=== PATIENT | male | born 1990 | race Two or more races ===

== ENCOUNTER 2017-04-10 14:43 | Emergency (ER) | payer BC ==
[2017-04-10 15:04] VITALS: TEMP 98.6; BMI 33.9
--- NOTE | 2017-04-10 15:17 | PDOC ---
History of Present Illness - General Chief Complaint: Palpitations Stated Complaint: PALPITATIONS Time Seen by Provider: 04/10/17 15:16 History Source: Patient Exam Limitations: No Limitations - History of Present Illness Initial Comments: 04/10/17 16:14 Patient is a 26 year old male with no significant PMH presenting with difficult breathing, heart palpitations and sinus pressure. Patient states his symptoms started about 3 days ago with an increased work of breathing and sinus pressure , no pain. He felt as if he could not catch his breath and was having to take deeper breaths than normal. Symptoms were improved with closing his eyes and laying back. Today he started feeling palpitations in his chest and feeling shaky and sweaty. He also started feeling panicky about not being able to get enough air. Denies fever, chills, chest pain, nausea and vomiting. He endorses similar symptoms 2 years ago for which he was given albuterol and an unknown medicine that he took for about a week. He states he didn't feel the albuterol helped. PCP: Dr. Sean Macias Past History - Past Medical History Allergies/Adverse Reactions: Allergies Allergy/AdvReac Type Severity Reaction Status Date / Time morphine Allergy Verified 04/10/17 15:01 Home Medications: Ambulatory Orders Brimonidine Tartrate/Timolol [Combigan 0.2%-0.5% Eye Drops] 5 ml OP DAILY Other medical history: denies. - Psycho/Social/Smoking Cessation Hx Anxiety: No Suicidal Ideation: No Smoking History: Never smoked Number of Cigarettes Smoked Daily: 0 Hx Alcohol Use: Yes ("occasional") Review of Systems - Review of Systems Able to Perform ROS?: Yes Comments:: Denies fever, chills, recent illness Denies sore throat, changes in vision and hearing Endorses difficulty breathing, sob, denies cough, wheezing Endorses palpitations, diaphoresis; denies chest pain, lightheadedness Denies abdominal pain, nausea, vomiting, diarrehea, constipation Denies dysurea, discharge, increased frequency Denies any bruises or rashes Denies muscle or joint pain Denies any weakness or dizziness Endorses feeling a panic, feeling shaky, feeling anxious All other systems reviewed and negative Is the patient limited Kyr[place]z proficient: No *Physical Exam - Vital Signs Last Vital Signs Temp Pulse Resp BP Pulse Ox 98.6 F 100 H 17 116/78 98 04/10/17 15:01 04/10/17 15:01 04/10/17 15:01 04/10/17 15:01 04/10/17 15:01 - Physical Exam Comments: GENERAL: AAOx3, nourished and generally well appearing, NAD HEAD: NCAT EYES: PERRLA, EOMI, sclera anicteric, conjunctiva clear ENT: hearing grossly normal, nares patent, mild erythema and enema of turbinate b/l, no nasal discharge, no congestion, MMM NECK: supple, normal ROM, no LAD RESP: speaking in full sentences, symmetrical chest expansion, no respiratory distress, lungs CTAB, no wheezing HEART: RRR, normal S1-S2, no MRG ABDOMEN: soft, NTND, no guarding, no rebound. EXTREMITIES: Moving all extremities, normal ROM, normal inspection NEUROLOGICAL: CN II-XII grossly intact, normal speech, normal gait, no focal sensorimotor deficits SKIN: warm, dry, normal turgor, no rashes or lesions noted. ED Treatment Course - LABORATORY CBC & Chemistry Diagram: 04/10/17 15:44 04/10/17 15:44 Medical Decision Making - Medical Decision Making 04/10/17 16:12 26 yo male with feelings of air hunger and palpitations w/o chest pains. Currently feeling much improved. Ddx includes but is not limited to arrhythmia, anxiety, metabolic Plan: EKG CBC, CMP Cardiac enzymes TSH CXR EKG: NSR, no s-t elevation, normal intervals 04/10/17 17:35 CBC WBC 6.5 K/mm3 (4.0-10.0) 04/10/17 15:44 RBC 5.11 M/mm3 (4.00-5.60) 04/10/17 15:44 Hgb 15.5 GM/dL (11.7-16.9) 04/10/17 15:44 Hct 44.5 % (35.4-49) 04/10/17 15:44 MCV 87.1 fl (80-96) 04/10/17 15:44 MCH 30.4 pg (25.7-33.7) 04/10/17 15:44 MCHC 34.9 g/dl (32.0-35.9) 04/10/17 15:44 RDW 13.1 % (11.9-15.9) 04/10/17 15:44 Plt Count 271 K/MM3 (134-434) 04/10/17 15:44 MPV 7.5 fl (7.5-11.1) 04/10/17 15:44 Neutrophils % 53.9 % (42.8-82.8) 04/10/17 15:44 Lymphocytes % 30.5 % (8-40) 04/10/17 15:44 Monocytes % 11.2 % (3.8-10.2) H 04/10/17 15:44 Eosinophils % 3.6 % (0-4.5) 04/10/17 15:44 Basophils % 0.8 % (0-2.0) 04/10/17 15:44 within normal limits CMP Sodium 138 mmol/L (136-145) 04/10/17 15:44 Potassium 3.8 mmol/L (3.5-5.1) 04/10/17 15:44 Chloride 103 mmol/L (98-107) 04/10/17 15:44 Carbon Dioxide 24 mmol/L (21-32) 04/10/17 15:44 Anion Gap 11 (8-16) 04/10/17 15:44 BUN 12 mg/dL (7-18) 04/10/17 15:44 Creatinine 0.8 mg/dL (0.7-1.3) 04/10/17 15:44 Creat Clearance w eGFR > 60 (>60) 04/10/17 15:44 Random Glucose 95 mg/dL (74-106) 04/10/17 15:44 Calcium 8.9 mg/dL (8.5-10.1) 04/10/17 15:44 Total Bilirubin 0.5 mg/dL (0.2-1.0) 04/10/17 15:44 AST 22 U/L (15-37) 04/10/17 15:44 ALT 50 U/L (12-78) 04/10/17 15:44 Alkaline Phosphatase 80 U/L (45-117) 04/10/17 15:44 Creatine Kinase 146 IU/L (39-308) 04/10/17 15:40 Troponin I < 0.02 ng/ml (0.00-0.05) 09/16/17 15:40 Total Protein 7.5 g/dl (6.4-8.2) 04/10/17 15:44 Albumin 4.0 g/dl (3.4-5.0) 04/10/17 15:44 Within normal limits no elevation in troponin 04/10/17 17:48 TSH within normal limits (1.26) Normal CBC, CMP, no elevation in cardiac enzymes, TSH Consulted patient about possible allergies and advised him to discuss with his PSP. Patient agrees to follow up with PCP in the next week *DC/Admit/Observation/Transfer Diagnosis at time of Disposition: Palpitations, Anxiety - Discharge Dispostion Disposition: HOME Condition at time of disposition: Improved Admit: No - Referrals Referrals: Timmy Macias MD [Staff Physician] - - Patient Instructions Printed Discharge Instructions: DI for Anxiety -- Adult Additional Instructions: Please follow up with Dr. Macias next week. If you call his office at the number provided and inform them your were seen in the emergency department they should be able to get you and appointment. We have provided you with a copy of your EKG and lab results from today that you can discuss with your doctor. You should return to the emergency department immediately if your symptoms worsen or you develop any new or concerning symptoms. If you do not feel safe driving yourself, please call 911.
--- NOTE | 2017-04-10 16:02 | PDOC ---
Attending Attestation - Resident Resident Name: Mike Medina - ED Attending Attestation I have performed the following: I have examined & evaluated the patient, The case was reviewed & discussed with the resident, I agree w/resident's findings & plan, Exceptions are as noted - HPI HPI: 04/10/17 15:54 26 M with h/o anxiety presents to ER with 3 days of intermittent palpitations. Pt states that every few hours he will get a sensation that his heart is racing. It is often associated with a feeling of severe anxiety. He reports that he begins to breathe heavily during these episodes, but they always resolve after a few minutes. Pt currently feels well. Denies ever having chest pain. Denies F/C. Denies cough. Denies any palpitations or SOB at this time. Pt states that these symptoms are similar to when he was diagnosed with anxiety several years ago. He was prescribed a medication by his PMD, which he states helped significantly, but he has not taken it in some time. Pt also endorses drinking 2 large cups of iced coffee every day. Denies other substance use. No ETOH, no cocaine/marijuana. - Physicial Exam PE: 04/10/17 15:56 "GENERAL: Awake, alert, and fully oriented, in no acute distress HEAD: No signs of trauma EYES: PERRLA, EOMI, sclera anicteric, conjunctiva clear ENT: Auricles normal inspection, hearing grossly normal, nares patent, oropharynx clear without exudates. Moist mucosa NECK: Nontender, no stepoffs, Normal ROM, supple, no lymphadenopathy, JVD, or masses LUNGS: Breath sounds equal, clear to auscultation bilaterally. No wheezes, and no crackles HEART: Regular rate and rhythm, normal S1 and S2, no murmurs, rubs or gallops ABDOMEN: Soft, nontender, normoactive bowel sounds. No guarding, no rebound. No masses EXTREMITIES: Normal range of motion, no edema. No clubbing or cyanosis. No cords, erythema, or tenderness NEUROLOGICAL: Cranial nerves II through XII intact. 5/5 strength and sensation in all extremities, Normal speech, normal gait SKIN: Warm, Dry, normal turgor, no rashes or lesions noted. " - Medical Decision Making 04/10/17 15:57 26 M with intermittent palpitations and SOB x 3 days. Currently asymptomatic with normal vitals. Possible anxiety. EKG to evaluate for cardiac arrhythmia. Will check TSH as well. - Labs, TSH - EKG - CXR Pt signed out to night team at 5PM. Dispo pending TSH, EKG. Discharge Disposition - Diagnosis Palpitations, Anxiety - Discharge Dispostion Disposition: HOME Condition at time of disposition: Improved - Referrals Referrals: Timmy Macias MD [Staff Physician] - - Patient Instructions Printed Discharge Instructions: DI for Anxiety -- Adult Additional Instructions: Please follow up with Dr. Macias next week. If you call his office at the number provided and inform them your were seen in the emergency department they should be able to get you and appointment. We have provided you with a copy of your EKG and lab results from today that you can discuss with your doctor. You should return to the emergency department immediately if your symptoms worsen or you develop any new or concerning symptoms. If you do not feel safe driving yourself, please call 911.
[2017-04-10 16:07] LABS: BASOPHIL 0.8 % (0-2.0); EOSINOPHIL 3.6 % (0-4.5); MCH 30.4 pg (25.7-33.7); MCHC 34.9 g/dl (32.0-35.9); MEAN CELL VOLUME 87.1 fl (80-96); MEAN PLT VOLUME 7.5 fl (7.5-11.1); NEUTROPHILS 53.9 % (42.8-82.8); PLATELET COUNT 271 K/MM3 (134-434); RDW 13.1 % (11.9-15.9); WHITE BLOOD COUNT 6.5 K/mm3 (4.0-10.0)
[2017-04-10 16:43] LABS: ANION GAP 11 (8-16); CALCIUM 8.9 mg/dL (8.5-10.1); CO2 24 mmol/L (21-32); CREATININE 0.8 mg/dL (0.7-1.3); GLUCOSE,RANDOM 95 mg/dL (74-106); SGOT/AST 22 U/L (15-37); SGPT/ALT 50 U/L (12-78)
[2017-04-10 16:45] LABS: ALK PHOS 80 U/L (45-117); BILIRUBIN,TOTAL 0.5 mg/dL (0.2-1.0); TOT PROT 7.5 g/dl (6.4-8.2)
[2017-04-10 16:47] LABS: CPK 146 IU/L (39-308); TROPONIN I < 0.02 ng/ml (0.00-0.05)
[2017-04-10 17:41] LABS: THYROID STIMULATING HORMONE 1.26 uIU/ml (0.358-3.74)
[2017-04-10 18:17] VITALS: BP 125/74; PULSE 80
--- NOTE | 2017-04-12 16:39 | EKG ---
Test Reason : Blood Pressure : / mmHG Vent. Rate : 091 BPM Atrial Rate : 091 BPM P-R Int : 142 ms QRS Dur : 082 ms QT Int : 348 ms P-R-T Axes : 059 012 009 degrees QTc Int : 428 ms NORMAL SINUS RHYTHM NO PREVIOUS ECGS AVAILABLE Confirmed by DENNY PARRA MD ([id number]) on 04/12/2017 4:38:43 PM Referred By: Confirmed By:DENNY PARRA MD
== END 2017-04-10 18:18 | disposition home or self-care (01) ==
LOC: JER 14:43
DX: F41.9 Anxiety disorder, unspecified (principal); R00.2 Palpitations
CPT/HCPCS: 36415; 71020-TC; 80053; 84443; 84484; 85025; 93005; 93010; 99284-25

== ENCOUNTER 2019-07-31 22:56 | Emergency (ER) | payer OTHER ==
[2019-07-31] MEDS ORDERED: IBUPROFEN 400 MG TABLET (FP) PO ONE ×2 (22:58→23:04)
[2019-07-31] MEDS ORDERED: MECLIZINE HCL 25 MG TABLET (FP) PO ONE (22:59)
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
[2019-07-31 23:03] VITALS: BP 124/78; PULSE 85; TEMP 98.3; BMI 34.4
[2019-07-31] MEDS ORDERED: MECLIZINE HCL 25 MG TABLET (FP) ONE (23:04)
== END 2019-07-31 23:33 | disposition home or self-care (01) ==
LOC: FER 22:56
DX: V43.52XA Car driver injured in collision with other type car in traffic accident, initial encounter (principal); Y93.89 Activity, other specified; Y92.410 Unspecified street and highway as the place of occurrence of the external cause
CPT/HCPCS: 99281-25

== ENCOUNTER 2022-05-12 21:46 | Emergency (ER) | payer OTHER ==
[2022-05-12 21:53] VITALS: BP 120/81; PULSE 84; RESP 19; TEMP 98.6; BMI 32.2
[2022-05-12] MEDS ORDERED: METHOCARBAMOL 500 MG TABLET PO ONE (22:13)
[2022-05-12] MEDS ORDERED: IBUPROFEN 600 MG TABLET (FP) PO ONE ×2 (22:13→22:17)
[2022-05-12] MEDS ORDERED: METHOCARBAMOL 500 MG TABLET ONE (22:17)
== END 2022-05-13 00:52 | disposition home or self-care (01) ==
LOC: JERFT 21:46
DX: S63.502A Unspecified sprain of left wrist, initial encounter (principal); S43.402A Unspecified sprain of left shoulder joint, initial encounter; V49.40XA Driver injured in collision with unspecified motor vehicles in traffic accident, initial encounter
CPT/HCPCS: 72050-TC-FY; 73030-TC-LT-FY; 73110-TC-LT-FY; 99284-25

== ENCOUNTER → 2024-08-09 | Day surgery (SDC) | payer OTHER | END | disposition home or self-care (01) | LOC: JRADIR 09:23 | PROVIDERS: ATTEND Internal Medicine | PROC: 0G9H3ZX Drainage of Right Thyroid Gland Lobe, Percutaneous Approach, Diagnostic (ICD-10-PCS; principal; 2024-08-09) | DX: E04.1 Nontoxic single thyroid nodule (principal) | CPT/HCPCS: 10005; 76942; 88173; 88305-TC ==